=== PATIENT | female | born 1995 | race Caucasian/White ===

== ENCOUNTER → 2018-04-18 | Outpatient (CLI) | payer BC ==
[2018-04-18 11:57] LABS: Basophils % (A) 1 %; Eosinophils # (A) 0.3 k/uL (0-0.7); Eosinophils % (A) 4 %; HGB 13.4 gm/dL (11.4-16.0); Lymphocytes # (A) 1.7 k/uL (1.0-4.8); Lymphocytes % (A) 27 %; MCH 31.9 pg (25.0-35.0); MCHC 33.4 g/dL (31.0-37.0); MCV 95.5 fL (80.0-100.0); Mean Platelet Volume 7.8; Monocytes # (A) 0.3 k/uL (0-1.0); Monocytes % (A) 5 %; Neutrophils # (A) 3.8 k/uL (1.3-7.7); Neutrophils % (A) 60 %; Platelet Count 277 k/uL (150-450); Poikilocytosis Slight; RBC 4.19 m/uL (3.80-5.40); RDW 14.9 % (11.5-15.5); WBC 6.2 k/uL (3.8-10.6)
[2018-04-18 13:26] LABS: ALT 15 U/L (9-52); AST 14 U/L (14-36); Albumin 3.9 g/dL (3.5-5.0); Alkaline Phosphatase 41 U/L (38-126); Anion Gap 8 mmol/L; Bilirubin, Delta 0.2 mg/dL (0.0-0.2); Bilirubin,Unconjugated 0.1 mg/dL (0.0-1.1); Blood Urea Nitrogen 14 mg/dL (7-17); Calcium 9.3 mg/dL (8.4-10.2); Carbon Dioxide 21 mmol/L (22-30); Chloride 110 mmol/L (98-107); Glucose 86 mg/dL (74-99); Potassium 4.6 mmol/L (3.5-5.1); Sodium 139 mmol/L (137-145); Total Bilirubin 0.3 mg/dL (0.2-1.3); Total Protein 6.7 g/dL (6.3-8.2)
== END ==
LOC: LABWHC1 10:12
PROVIDERS: ATTEND Family Medicine
DX: Z00.00 Encounter for general adult medical examination without abnormal findings (principal); R63.4 Abnormal weight loss; R53.83 Other fatigue
CPT/HCPCS: 36415; 80053; 82248; 84439; 84443; 85025

== ENCOUNTER 2018-05-16 18:33 | Emergency (ER) | payer BC ==
[2018-05-16 19:02] VITALS: BP 126/81; PULSE 76; RESP 18; TEMP 98.5
[2018-05-16] MEDS ORDERED: KETOROLAC 30 MG/ML 1 ML VIAL IM STA (19:31)
--- NOTE | 2018-05-16 19:38 | ED ---
Recheck HPI - General Source: patient, RN notes reviewed Mode of arrival: ambulatory Limitations: no limitations <Virginie Driver - Last Filed: 05/16/18 21:02> <Jennifer Burris - Last Filed: 05/16/18 21:11> - General Chief Complaint: Recheck/Abnormal Lab/Rx Stated Complaint: side pain Time Seen by Provider: 05/16/18 19:24 - History of Present Illness Initial Comments: This is a 23-year-old female who presents to the emergency department with chief complaint of left-sided rib pain. Patient states that she developed rib pain 4 days ago. She states that it is sharp and stabbing. Pain is made worse with movement, rotating and forward bending. She was evaluated at [facility] 2 days ago and x-rays were obtained. Patient states that no definitive diagnosis was given to her and she was discharged home with the diagnosis of "pain." Patient states that she was prescribed ibuprofen but has not yet picked up the prescription. She states that today while at work the pain got worse. She denies any injuries or trauma. Denies falls. Patient does state that she has recently been sick with an upper respiratory infection. She states that she has had a productive cough that has been persistent. She also reports that she is a current, every day smoker. She denies fevers or chills, shortness of breath, abdominal pain, nausea or vomiting. (Virginie Driver) - Related Data Home Medications Medication Instructions Recorded Confirmed Acetaminophen [Tylenol Extra 1,000 mg PO BID PRN 07/01/17 07/01/17 Strength] Previous Rx's Medication Instructions Recorded oxyCODONE-APAP 7.5-325MG [Percocet 1 tab PO Q6HR PRN #12 tab 07/01/17 7.5-325 mg] Allergies Allergy/AdvReac Type Severity Reaction Status Date / Time albuterol AdvReac Unknown Verified 05/16/18 19:02 codeine AdvReac Vomiting Verified 05/16/18 19:02 Review of Systems ROS Other: All systems not noted in ROS Statement are negative. <Virginie Driver - Last Filed: 05/16/18 21:02> ROS Other: All systems not noted in ROS Statement are negative. <Jennifer Burris - Last Filed: 05/16/18 21:11> ROS Statement: Those systems with pertinent positive or pertinent negative responses have been documented in the HPI. Past Medical History Past Medical History: No Reported History History of Any Multi-Drug Resistant Organisms: None Reported Past Surgical History: Back Surgery Additional Past Surgical History / Comment(s): medical history - cyst on brain, lyme disease. surgical history - brain surgery to removal cyst from behind ear, Past Psychological History: Anxiety Smoking Status: Current every day smoker Past Alcohol Use History: Occasional Past Drug Use History: Marijuana <Virginie Driver - Last Filed: 05/16/18 21:02> General Exam Limitations: no limitations <Virginie Driver - Last Filed: 05/16/18 21:02> <Jennifer Burris - Last Filed: 05/16/18 21:11> - General Exam Comments Initial Comments: General: Awake and alert, well-developed; in mild distress due to pain. Patient has difficulty going from lying to sitting position due to pain in the left ribs. HEENT: Head atraumatic, normocephalic. Pupils are equal, round and reactive to light. Extraocular movements intact. Oropharynx moist without erythema or exudate. Neck: Supple. Normal ROM. Cardiovascular: Regular rate and rhythm. No murmurs, rubs or gallops. Chest symmetrical. Significant tenderness on palpation of the left lateral ribs at the level of the mid left breast. Respiratory: Lungs clear to auscultation bilaterally. No wheezes, rales or rhonchi. Normal respiratory effort with no use of accessory muscles. Musculoskeletal: Normal ROM, no tenderness bilateral upper and lower extremities. Ambulating normally. Skin: [place], warm and dry without rashes or lesions. Neurological: Alert and oriented x3. CN II-XII grossly intact. Speech is fluent and answers are appropriate. No focal neuro deficits. Psychiatric: Normal mood and affect. No overt signs of depression or anxiety noted. (Virginie Driver) Vital Signs 05/16/18 05/16/18 18:59 19:19 Temperature 98.5 F Pulse Rate 76 Respiratory 18 18 Rate Blood Pressure 126/81 O2 Sat by Pulse 100 Oximetry Medical Decision Making - Radiology Data Radiology results: report reviewed <Virginie Driver - Last Filed: 05/16/18 21:02> <Jennifer Burris - Last Filed: 05/16/18 21:11> - Medical Decision Making This is a 23-year-old female who presents to the emergency department with chief complaint of left-sided rib pain. Patient reports pain to the left ribs. The past 4 days. She was evaluated at [facility] 2 days ago and his rib pain. Patient states that she was discharged home with diagnosis of "pain." She was prescribed ibuprofen but has not yet filled the prescription. She states that pain became worse today while at work. Pain is positional, increasing with forward bending and rotation. There is significant tenderness on palpation of the lateral left ribs at the level of the mid breast. Patient' s vital signs are stable and she is 100% on room air. She denied any injuries, trauma or fall. X-rays of the left ribs and chest were obtained with patient's consent and this revealed no acute abnormalities. Based on history and physical examination, high clinical suspicion for intercostal muscle strain. Recommended rest, ice and for patient to fill her prescription of ibuprofen. She is in agreement with plan and voices understanding. She will be discharged home at this time. She is in agreement with plan and voices understanding. All questions were answered. (Virginie Driver) I was available for consultation in the emergency department. The history and physical exam were done by the Midlevel Provider. Medical decision making was done by the Midlevel Provider. The Midlevel Provider did not contact me for this patient's care. I was not directly involved in this patient's care. (Jennifer Burris) - Radiology Data X-ray left ribs with PA chest impression: No acute process. (Virginie Driver) Disposition Is patient prescribed a controlled substance at d/c from ED?: No Time of Disposition: 21:08 <Virginie Driver - Last Filed: 05/16/18 21:02> <Jennifer Burris - Last Filed: 05/16/18 21:11> Clinical Impression: Rib pain on left side Disposition: HOME SELF-CARE Condition: Good Instructions: Chest Wall Pain (ED) Additional Instructions: Please follow up with primary care provider within 1-2 days. Return to emergency department if symptoms should worsen or any concerns arise. Referrals: Arley Valadez MD [Primary Care Provider] - 1-2 days
--- NOTE | 2018-05-16 21:00 | XR ---
PROCEDURE: XR ribs LT w pa chest xray - 5V DATE AND TIME: 05/16/2018 7:50 PM CLINICAL INDICATION: Pain TECHNIQUE: 5 views COMPARISON: October 31, 2013 FINDINGS: There is no fracture or malalignment. No pneumothorax or pleural effusion. The soft tissues are unremarkable. IMPRESSION: NO ACUTE PROCESS.
== END 2018-05-16 21:15 | disposition home or self-care (01) ==
LOC: EC 18:33
DX: R07.81 Pleurodynia (principal); R05 Cough; F17.200 Nicotine dependence, unspecified, uncomplicated; Z88.5 Allergy status to narcotic agent; Z88.8 Allergy status to other drugs, medicaments and biological substances
CPT/HCPCS: 71101; 99283; 96372; J1885

== ENCOUNTER 2018-08-30 16:03 | Emergency (ER) | payer BC ==
[2018-08-30 16:18] VITALS: BP 124/63; PULSE 74; RESP 18; TEMP 97.9
[2018-08-30 17:27] LABS: Appearance,Urine Clear (Clear); Bilirubin,Urine Negative (Negative); Blood,Urine Negative (Negative); Color,Urine Light Yellow; Glucose,Urine (UA) Negative (Negative); Ketones,Urine Trace (Negative); Leukocyte Esterase,Urine Negative (Negative); Nitrite,Urine Negative (Negative); PH, Urine 5.5 (5.0-8.0); Protein,Urine Negative (Negative); Specific Gravity,Urine 1.008 (1.001-1.035); Urobilinogen,Urine <2.0 mg/dL (<2.0)
[2018-08-30 18:00] LABS: Basophils % (A) 1 %; Eosinophils # (A) 0.3 k/uL (0-0.7); Eosinophils % (A) 4 %; HCT 39.3 % (34.0-46.0); HGB 13.1 gm/dL (11.4-16.0); Lymphocytes # (A) 2.8 k/uL (1.0-4.8); Lymphocytes % (A) 37 %; MCH 31.4 pg (25.0-35.0); MCHC 33.5 g/dL (31.0-37.0); MCV 93.7 fL (80.0-100.0); Mean Platelet Volume 6.2; Monocytes # (A) 0.4 k/uL (0-1.0); Monocytes % (A) 5 %; Neutrophils # (A) 3.8 k/uL (1.3-7.7); Neutrophils % (A) 51 %; Platelet Count 303 k/uL (150-450); Poikilocytosis Slight; RBC 4.19 m/uL (3.80-5.40); RDW 14.4 % (11.5-15.5); WBC 7.4 k/uL (3.8-10.6)
[2018-08-30 18:07] LABS: ALT 18 U/L (9-52); AST 15 U/L (14-36); Albumin 4.1 g/dL (3.5-5.0); Alkaline Phosphatase 44 U/L (38-126); Anion Gap 8 mmol/L; Blood Urea Nitrogen 10 mg/dL (7-17); Calcium 9.2 mg/dL (8.4-10.2); Carbon Dioxide 22 mmol/L (22-30); Chloride 108 mmol/L (98-107); Glucose 80 mg/dL (74-99); Potassium 4.4 mmol/L (3.5-5.1); Sodium 138 mmol/L (137-145); Total Bilirubin 0.6 mg/dL (0.2-1.3); Total Protein 6.9 g/dL (6.3-8.2)
--- NOTE | 2018-08-30 18:16 | ED ---
General Adult HPI - General Chief complaint: Recheck/Abnormal Lab/Rx Stated complaint: test Time Seen by Provider: 08/30/18 16:37 Source: patient, RN notes reviewed, old records reviewed Mode of arrival: ambulatory Limitations: no limitations - History of Present Illness Initial comments: 23-year-old female patient no pertinent past month history presents to ED with chief complaint of requesting a serum hCG test. Patient reports that she is 2 weeks late for her menses, reports she had multiple negative urine hCGs at home. Patient reports that she would like a definitive answer. Patient has a secondary complaint of some right adnexal cramping. Patient states that this has been waxing and waning for approximately 3 days. Patient denies any severe pain, states that is mild. Patient reports that she does have a history of ovarian cysts. She denies any abdominal pain. Patient has any other complaints. Systemic: Pt denies fatigue, myalgia, fever/chills, rash. Pt denies weakness, night sweats, weight loss. Neuro: Pt denies headache, visual disturbances, syncope or pre-syncope. HEENT: Pt denies ocular discharge or irritation, otalgia, rhinorrhea, pharyngitis or notable lymphadenopathy. Cardiopulmonary: Pt denies chest pain, SOB, heart palpitations, dyspnea on exertion. Abdominal/GI: Pt denies abdominal pain, n/v/d. : Pt denies dysuria, burning w/ urination, frequency/urgency. Denies new onset urinary or bowel incontinence. MSK: Pt denies myalgia, loss of strength or function in extremities. Neuro: Pt denies new onset weakness, paresthesias. - Related Data Home Medications Medication Instructions Recorded Confirmed Evelyne 21 1-20 1 tab PO HS 08/30/18 08/30/18 Allergies Allergy/AdvReac Type Severity Reaction Status Date / Time albuterol AdvReac Unknown Verified 08/30/18 16:48 codeine AdvReac Vomiting Verified 08/30/18 16:48 Review of Systems ROS Statement: Those systems with pertinent positive or pertinent negative responses have been documented in the HPI. ROS Other: All systems not noted in ROS Statement are negative. Past Medical History Past Medical History: No Reported History Additional Past Medical History / Comment(s): Lyme disease History of Any Multi-Drug Resistant Organisms: None Reported Past Surgical History: Back Surgery Additional Past Surgical History / Comment(s): medical history - cyst on brain, lyme disease. surgical history - brain surgery to removal cyst from behind ear, Past Psychological History: Anxiety Smoking Status: Current every day smoker Past Alcohol Use History: Occasional Past Drug Use History: Marijuana General Exam - General Exam Comments Initial Comments: Constitutional: NAD, AOX3, Pt has pleasant affect. HEENT: NC/AT, trachea midline, neck supple, no lymphadenopathy. Posterior pharynx non erythematous, without exudates. External ears appear normal, without discharge. Mucous membranes moist. Eyes PERRLA, EOM intact. There is no scleral icterus. No pallor noted. Cardiopulmonary: RRR, no murmurs, rubs or gallops, no JVD noted. Lungs CTAB in anterior and posterior childers. No peripheral edema. Abdominal exam: Abdomen soft and non-distended. Abdomen non-tender to palpation in all 4 quadrants. Bowel sounds active in LLQ. No hepatosplenomegaly. No ecchymosis. Adnexa nontender to palpation. Neuro: CN II-XII grossly intact. No nuchal rigidity. MSK: No posterior calf tenderness bilaterally, homans sign negative bilaterally. Posterior tibialis and radial pulse +2 bilaterally. Sensation intact in upper and lower extremities. Full active ROM in upper and lower extremities, 5/5 stregnth. Limitations: no limitations Course Vital Signs 08/30/18 16:15 Temperature 97.9 F Pulse Rate 74 Respiratory 18 Rate Blood Pressure 124/63 O2 Sat by Pulse 99 Oximetry Medical Decision Making - Medical Decision Making 23-year-old female patient no pertinent past month history presents to ED with chief complaint of requesting a serum hCG test. Patient reports that she is 2 weeks late for her menses, reports she had multiple negative urine hCGs at home. Patient reports that she would like a definitive answer. Patient has a secondary complaint of some right adnexal cramping. Patient states that this has been waxing and waning for approximately 3 days. Patient denies any severe pain, states that is mild. Patient vital signs stable afebrile. Physical exam did not display acute pathology. CBC non-impressive, CMP nonimpressive. Serum hcg negative. UA non-impressive, hCG negative. Vaginal Ultrasound displayed simple dominant left ovarian cyst. No solid adnexal mass, normal Doppler exam, no evidence of ovarian torsion. Findings explained to patient at length. Patient was understanding. Patient to follow up with PCP in 1-2 days if symptoms persist. Patient to return to ED if new s/ sx develop or if condition worsens in anyway. case discussed in depth with Dr. Blue. - Lab Data Result diagrams: 08/30/18 17:25 08/30/18 17:25 Lab Results 08/30/18 08/30/18 08/30/18 Range/Units 17:05 17:05 17:25 WBC 7.4 (3.8-10.6) k/uL RBC 4.19 (3.80-5.40) m/uL Hgb 13.1 (11.4-16.0) gm/dL Hct 39.3 (34.0-46.0) % MCV 93.7 (80.0-100.0) fL MCH 31.4 (25.0-35.0) pg MCHC 33.5 (31.0-37.0) g/dL RDW 14.4 (11.5-15.5) % Plt Count 303 (150-450) k/uL Neutrophils % 51 % Lymphocytes % 37 % Monocytes % 5 % Eosinophils % 4 % Basophils % 1 % Neutrophils # 3.8 (1.3-7.7) k/uL Lymphocytes # 2.8 (1.0-4.8) k/uL Monocytes # 0.4 (0-1.0) k/uL Eosinophils # 0.3 (0-0.7) k/uL Basophils # 0.0 (0-0.2) k/uL Poikilocytosis Slight Sodium (137-145) mmol/L Potassium (3.5-5.1) mmol/L Chloride (98-107) mmol/L Carbon Dioxide (22-30) mmol/L Anion Gap mmol/L BUN (7-17) mg/dL Creatinine (0.52-1.04) mg/dL Est GFR (CKD-EPI)AfAm (>60 ml/min/1.73 sqM) Est GFR (CKD-EPI)NonAf (>60 ml/min/1.73 sqM) Glucose (74-99) mg/dL Calcium (8.4-10.2) mg/dL Total Bilirubin (0.2-1.3) mg/dL AST (14-36) U/L ALT (9-52) U/L Alkaline Phosphatase (38-126) U/L Total Protein (6.3-8.2) g/dL Albumin (3.5-5.0) g/dL HCG, Quant mIU/mL Urine Color Light Yellow Urine Appearance Clear (Clear) Urine pH 5.5 (5.0-8.0) Ur Specific [place] 1.008 (1.001-1.035) Urine Protein Negative (Negative) Urine Glucose (UA) Negative (Negative) Urine Ketones Trace H (Negative) Urine Blood Negative (Negative) Urine Nitrite Negative (Negative) Urine Bilirubin Negative (Negative) Urine Urobilinogen <2.0 (<2.0) mg/dL Ur Leukocyte Esterase Negative (Negative) Urine HCG, Qual Not Detected (Not Detectd) 08/30/18 Range/Units 17:25 WBC (3.8-10.6) k/uL RBC (3.80-5.40) m/uL Hgb (11.4-16.0) gm/dL Hct (34.0-46.0) % MCV (80.0-100.0) fL MCH (25.0-35.0) pg MCHC (31.0-37.0) g/dL RDW (11.5-15.5) % Plt Count (150-450) k/uL Neutrophils % % Lymphocytes % % Monocytes % % Eosinophils % % Basophils % % Neutrophils # (1.3-7.7) k/uL Lymphocytes # (1.0-4.8) k/uL Monocytes # (0-1.0) k/uL Eosinophils # (0-0.7) k/uL Basophils # (0-0.2) k/uL Poikilocytosis Sodium 138 (137-145) mmol/L Potassium 4.4 (3.5-5.1) mmol/L Chloride 108 H (98-107) mmol/L Carbon Dioxide 22 (22-30) mmol/L Anion Gap 8 mmol/L BUN 10 (7-17) mg/dL Creatinine 0.77 (0.52-1.04) mg/dL Est GFR (CKD-EPI)AfAm >90 (>60 ml/min/1.73 sqM) Est GFR (CKD-EPI)NonAf >90 (>60 ml/min/1.73 sqM) Glucose 80 (74-99) mg/dL Calcium 9.2 (8.4-10.2) mg/dL Total Bilirubin 0.6 (0.2-1.3) mg/dL AST 15 (14-36) U/L ALT 18 (9-52) U/L Alkaline Phosphatase 44 (38-126) U/L Total Protein 6.9 (6.3-8.2) g/dL Albumin 4.1 (3.5-5.0) g/dL HCG, Quant <2.4 mIU/mL Urine Color Urine Appearance (Clear) Urine pH (5.0-8.0) Ur Specific [place] (1.001-1.035) Urine Protein (Negative) Urine Glucose (UA) (Negative) Urine Ketones (Negative) Urine Blood (Negative) Urine Nitrite (Negative) Urine Bilirubin (Negative) Urine Urobilinogen (<2.0) mg/dL Ur Leukocyte Esterase (Negative) Urine HCG, Qual (Not Detectd) - EKG Data -: EKG Interpreted by Me EKG Comments: ventricular rate 80, ID interval 156, QRS 82, QT/QTC 378/435. normal sinus rhythm, normal EKG. Disposition Clinical Impression: test negative Disposition: HOME SELF-CARE Condition: Stable Instructions (If sedation given, give patient instructions): (ED) Additional Instructions: Patient to adhere to previously discussed treatment plan and will take medication(s) as directed. Patient to follow up with PCP in 1-2 days. Patient to return to ED if symptoms do not improve. Is patient prescribed a controlled substance at d/c from ED?: No Referrals: Arley Valadez MD [Primary Care Provider] - 1-2 days Time of Disposition: 18:16
[2018-08-30 18:24] LABS: HCG,Quantitative Serum <2.4 mIU/mL
--- NOTE | 2018-08-30 18:30 | US ---
EXAMINATION TYPE: US transvaginal DATE OF EXAM: 08/30/2018 COMPARISON: NONE CLINICAL HISTORY: r adnexal cramping . patient's cycle in 2 weeks late, h/o ovarian cysts TECHNIQUE: TV. Date of LMP: 07/21/2018 EXAM MEASUREMENTS: Uterus: 7.3 x 4.3 x 3.0 cm Endometrial Stripe: 0.5 cm Right Ovary: 2.8 x 2.9 x 1.4 cm Left Ovary: 3.4 x 3.5 x 3.5 cm 1. Uterus: Anteverted wnl 2. Endometrium: wnl 3. Right Ovary: follicles seen under 1cm 4. Left Ovary: 2.7cm simple cyst seen Spectral, color and waveform doppler imaging shows good arterial and venous flow within the ovaries ; there is no evidence for ovarian torsion. 5. Bilateral Adnexa: mild free fluid adjacent to right ovary 6. Posterior cul-de-sac: wnl IMPRESSION: Simple dominant left ovarian cyst. No solid adnexal mass. Normal Doppler exam. No evidenc e of ovarian torsion.
== END 2018-08-30 19:19 | disposition home or self-care (01) ==
LOC: EC 16:03
DX: Z32.02 Encounter for pregnancy test, result negative (principal); N83.202 Unspecified ovarian cyst, left side; F17.200 Nicotine dependence, unspecified, uncomplicated; Z79.3 Long term (current) use of hormonal contraceptives; Z88.8 Allergy status to other drugs, medicaments and biological substances; Z88.5 Allergy status to narcotic agent
CPT/HCPCS: 36415; 76830; 80053; 81003; 81025; 84702; 85025; 93975; 99284